=== PATIENT | male | born 1995 | race Caucasian/White ===

== ENCOUNTER 2018-12-30 18:31 | Emergency (ER) | payer BC ==
--- NOTE | 2018-12-30 19:15 | EDPHY ---
H & P Time Seen by Provider: 12/30/18 18:51 HPI/ROS: CHIEF COMPLAINT: Left wrist laceration HISTORY OF PRESENT ILLNESS: 23-year-old male right-hand dominant was opening a bottle of champagne when the glass broke consisting laceration was left wrist volar-ulnar aspect. Complaining of pain. Concerned about possible retained glass fragments. No paresthesia. Tetanus up-to-date. PHYSICAL EXAM (Prior to examination, patient consented to physical exam, hands were washed and my usual and customary physical exam procedures followed) 1) GENERAL: Well-developed, well-nourished, alert and oriented. Appears to be in no acute distress. 2) HEAD: Normocephalic 3) HEENT: Pupils equal, round, reactive to light bilaterally. 4) LUNGS: Breathing comfortably. 5) MUSCULOSKELETAL: Soft compartments. Normal coloration. Negative Pepe test. He has lacerated the more than likely flexor carpi ulnaris tendon. 6) SKIN: 1 cm laceration left volar-ulnar wrist. Not through and through. No visible or palpable foreign body. 7) VASCULAR: pulses and cap refill present are brisk 8) NEUROLOGIC: Radial, ulnar, median nerve function intact with no deficits appreciated on exam DIFFERENTIAL DIAGNOSIS: in no particular order including but not limited to fracture, sprain, compartment syndrome Constitutional: Initial Vital Signs Temperature (C) 37.1 C 12/30/18 18:39 Heart Rate 78 12/30/18 18:39 Respiratory Rate 18 12/30/18 18:39 Blood Pressure 122/65 H 12/30/18 18:39 O2 Sat (%) 96 12/30/18 18:39 O2 Delivery Mode Room Air Allergies/Adverse Reactions: No Known Allergies Allergy (Unverified 12/30/18 18:39) Home Medications: Medication Instructions Recorded Cephalexin [Keflex] 500 mg PO TID 5 Days cap 12/30/18 MDM/Departure - MDM Imaging Results: Imaging Impressions Wrist X-Ray 12/30/18 19:08 Impression: Negative left wrist radiographs. Images r reviewed myself Procedures: Procedure: Laceration repair. I explained the indications, risks and benefits for both laceration repair and anesthetic administration. Verbal consent was obtained from the [patient]. The laceration on the [location] was anesthetized using [0.5% bupivicaine] [with ][out] [epinephrine] [digital nerve block]. After anesthetic administered the patient was observed for a period of time and had no apparent adverse effects. The wound was cleaned, prepped, draped in normal sterile fashion and explored to its base. No foreign body seen, no foreign bodies palpated. [There were no deep structures involved.] [No tendon injury was identified.] The wound was repaired with [ ]. The wound repair was [simple][complex]. The procedure was performed by [myself]. Patient has been informed that scarring will occur, although efforts have been made to minimize this. Procedure: Splint A [volar velcro ] splint was applied by ER cadd technician. After application of the splint I returned and re-examined the patient. The splint was adequately immobilizing the joint and distal to the splint the patient's circulation and sensation were intact. Patient shows no signs of compartment syndrome. Was given orthopedic precautions. ED Course/Re-evaluation: Consultation Dr. Jad Yoon regarding the patient's flexor carpi ulnaris laceration. He agrees with plan of splint, prophylactic antibiotics, follow up in office the next 1-2 days. Patient given this referral information and feels comfortable being discharged. Care of patient under supervision of secondary supervising physician Dr Keith . - Depart Disposition: Home, Routine, Self-Care Clinical Impression: Laceration of wrist Qualifiers: Encounter type: initial encounter Laterality: left Qualified Code(s): S61.512A - Laceration without foreign body of left wrist, initial encounter Condition: Good Instructions: Laceration (ED) Additional Instructions: Return to the ER if you develop redness, swelling, discharge, warmth to the wound, red streaks going up your arm, or any other symptoms that concern you. Stand Alone Forms: School Excuse Prescriptions: Cephalexin [Keflex] 500 mg PO TID 5 Days cap Referrals: Mumtaz Calles MD [Medical Doctor] - 1 day without fail (Call the office tomorrow to be seen by either Dr. Calles or Dr. Yoon)
[2018-12-30 19:53] VITALS: BP 139/75
== END 2018-12-30 20:05 | disposition home or self-care (01) ==
PROC: 0HQEXZZ Repair Left Lower Arm Skin, External Approach (ICD-10-PCS; principal; 2018-12-30)
DX: S61.512A Laceration without foreign body of left wrist, initial encounter (principal); W25.XXXA Contact with sharp glass, initial encounter; Y93.89 Activity, other specified
CPT/HCPCS: L3807